=== PATIENT | male | born 1945 | race Caucasian/White ===

== ENCOUNTER 2020-11-01 09:19 | Emergency (ER) | payer OTHER, MEDICARE, SELFPAY ==
[2020-11-01 09:20] VITALS: BP 200/112; PULSE 68; RESP 16; TEMP 36.5; O2SAT 100; BMI 25.3
--- NOTE | 2020-11-01 09:39 | XR_ITS ---
WS: [id number] Portable AP upright chest, 11/01/2020 Clinical Data: chest pain Comparison: None. Findings: No nodules, masses or effusions are seen. The heart is normal. The pulmonary vascularity is not increased. No pneumonia or pneumothorax is seen. The aortic arch and descending aorta are tortuo us. There is a right shoulder arthroplasty. 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 Yelena tor leads are on the chest wall. XR/XR chest 1V portable [id number] Impression: Atherosclerosis.
--- NOTE | 2020-11-01 09:39 | ECG_ITS ---
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 Measurements Intervals [place] Rate: 68 P: 12 [place]: 161 QRS: -45 QRSD: 94 T: 57 QT: 405 QTc: 432 Interpretive Statements SINUS RHYTHM WITH OCCASIONAL SUPRAVENTRICULAR PREMATURE COMPLEXES INCOMPLETE RIGHT BUNDLE BRANCH BLOCK [90+ ms QRS DURATION, TERMINAL R IN V1/V2, 40+ ms S IN I/aVL/V4/V5/V6] LEFT ANTERIOR FASCICULAR BLOCK [QRS AXIS <= -45, QR IN I, RS IN II] MODERATE VOLTAGE CRITERIA FOR LVH, CONSIDER NORMAL VARIANT [MEETS CRITERIA IN ONE OF: R(aVL), S(V1), R(V5), R(V5/V6)+S(V1)] No previous ECG available for comparison Electronically Signed On 11-02-2020 5:19:11 CDT by Gayla Bowers M.D. [email or web address]/[id number]
--- NOTE | 2020-11-01 09:46 | W.ED.CHESTPA ---
HPI - Chest Pain General: Chief Complaint: Chest Pain Stated Complaint: CP Time Seen by Provider: 11/01/20 09:26 History of Present Illness: HPI narrative: 74-year-old male presents emergency room with complaint of chest pain left lateral. Began intermittently yesterday some shaking his with it. He had an episode yesterday was going upstairs he got a little bit diaphoretic and short of breath very mild nausea. He has not had any vomiting his appetite has been decreased. He previously had work-up for chest discomfort had a Holter monitor and a stress test but never had any kind of intervention has no known history of heart disease is not diabetic and he does not smoke does have a history of hyperlipidemia and hypertension he did take his blood pressure medications this morning. MD complaint: chest heaviness and chest discomfort Onset (ago): day(s) Timing of current episode: episodic Onset: during rest Pain location: substernal and left chest Severity: mild Quality: heaviness Relieving factors: nothing Exacerbating factors: nothing Associated symptoms: Reports diaphoresis, dyspnea and nausea; Deny abdominal pain, fever(s), leg edema, palpitations, sense of impending doom, syncope or vomiting Treatment prior to arrival: none Review of Systems Const: Reports: diaphoresis; Denies: fever(s) ENMT: Denies: throat pain, ear or mastoid pain, nasal discharge or nasal congestion Card: Denies: palpitations or syncope Resp: Reports: dyspnea GI: Reports: nausea; Denies: abdominal pain or vomiting : Denies: flank pain, dysuria, urinary frequency or urinary urgency Skin/Breast: Denies: rash or pruritus PFSH ED PFSH: Family History Father Cancer Mother CAD (coronary artery disease) Hypertension Social History Smoking and tobacco status: never smoked Physical Exam Const: COMMON NORMALS: no acute distress GENERAL APPEARANCE: cooperative and comfortable ORIENTATION/CONSCIOUSNESS: Yes awake, Yes oriented to person, Yes oriented to place and Yes oriented to time HENMT: COMMON NORMALS: normocephalic, atraumatic and hearing grossly normal bilaterally HEAD & SCALP: normocephalic and atraumatic Neck/C-Spine: COMMON NORMALS: no JVD Resp: COMMON NORMALS: normal respiratory effort, No retractions, No use of accessory muscles and clear to auscultation bilaterally AUSCULTATION: clear to auscultation bilaterally Cardio: COMMON NORMALS: no JVD, regular rate, regular rhythm and No murmurs present (Cardio) RATE: regular rate RHYTHM: regular rhythm GI: COMMON NORMALS: Soft to palpation and No hepatosplenomegaly present AUSCULTATION: Yes normoactive bowel sounds PALPATION: Yes Soft to palpation, No Tenderness to palpation present (GI), No Guarding due to palpation present (GI) and Yes No hepatosplenomegaly present Extremity: COMMON NORMALS: normal to inspection, capillary refill normal, no clubbing, cyanosis or edema, no calf tenderness and no pedal edema Neuro: SENSORIUM/ORIENTATION: Yes oriented to person, Yes oriented to place and Yes oriented to time Skin: COMMON NORMALS: no rashes or lesions noted GENERAL SKIN EXAM: no rashes or lesions noted Course Vital Signs: Vital signs: Vital Signs Temperature 97.7 F 11/01/20 09:20 Pulse Rate 64 11/01/20 12:36 Respiratory Rate 18 11/01/20 12:36 Blood Pressure 145/104 11/01/20 12:36 Pulse Oximetry 95 11/01/20 12:36 MDM - Chest Pain MDM Narrative: Medical decision making narrative: Patient prefer to go home troponins negative reviewed EKGs. Will discharge home metoprolol isosorbide mononitrate for his blood [id number] as primary care provider within the week. He also needs to return if he has any further problems. Lab Data: Labs: Lab Results 11/01/20 11/01/20 11/01/20 Range/Units 09:42 09:42 09:42 WBC 7.8 (4.0-10.0) 10^3/ uL RBC 5.14 (4.1-5.3) 10^6/u L Hgb 15.3 (11.7-16.6) g/dL Hct 45.2 (42.0-52.0) % MCV 87.9 (80-94) fL MCH 29.8 (28.0-34.0) pg MCHC 33.8 (30.0-36.0) g/dL RDW 11.9 L (12.1-15.1) % Plt Count 182 (130-400) 10^3/c mm MPV 9.7 (7.4-10.4) fL Neut % (Auto) 64.9 % Lymph % (Auto) 26.5 % [place] % (Auto) 6.3 % Eos % (Auto) 1.5 % Baso % (Auto) 0.5 % Neut # (Auto) 5.03 (1.8-7.7) 10^3/u L Lymph # (Auto) 2.1 (0.8-4.8) 10^3/u L [place] # (Auto) 0.5 (0.2-0.9) 10^3/u L Eos # (Auto) 0.1 (0.0-0.8) 10^3/u L Baso # (Auto) 0.0 (0.0-0.1) 10^3/u L Nucleated RBC % (a uto) 0 % Nucleated RBCs # 0.0 /100WBC Sodium 140 (136-145) mmol/L Potassium 3.8 (3.5-5.1) mmol/L Chloride 103 (98-107) mmol/L Carbon Dioxide 29 (22-29) mmol/L Anion Gap 11.8 (5-19) BUN 13 (8-23) mg/dL Creatinine 0.8 (0.7-1.2) mg/dL GFR Calculation Not Reportable Glucose 72 (65-115) mg/dL Calculated Osmolal ity 289 (285-295) mOsm/k g Calcium 8.8 (8.5-10.5) mg/dL Total Bilirubin 0.6 (0.15-1.2) mg/dL AST 13 (0-40) U/L ALT 11 (0-41) U/L Alkaline Phosphata se 67 (40-130) IU/L Troponin T Baselin e 16 H (0-15) ng/L Troponin T 120 Min robinson (0-15) ng/L Delta Troponin T (0-10) ABS# Total Protein 6.9 (6.6-8.7) g/dL Albumin 4.3 (3.5-5.2) g/dL Globulin 2.6 (1.3-4.6) g/dL 11/01/20 Range/Units 11:30 WBC (4.0-10.0) 10^3/ uL RBC (4.1-5.3) 10^6/u L Hgb (11.7-16.6) g/dL Hct (42.0-52.0) % MCV (80-94) fL MCH (28.0-34.0) pg MCHC (30.0-36.0) g/dL RDW (12.1-15.1) % Plt Count (130-400) 10^3/c mm MPV (7.4-10.4) fL Neut % (Auto) % Lymph % (Auto) % [place] % (Auto) % Eos % (Auto) % Baso % (Auto) % Neut # (Auto) (1.8-7.7) 10^3/u L Lymph # (Auto) (0.8-4.8) 10^3/u L [place] # (Auto) (0.2-0.9) 10^3/u L Eos # (Auto) (0.0-0.8) 10^3/u L Baso # (Auto) (0.0-0.1) 10^3/u L Nucleated RBC % (a uto) % Nucleated RBCs # /100WBC Sodium (136-145) mmol/L Potassium (3.5-5.1) mmol/L Chloride (98-107) mmol/L Carbon Dioxide (22-29) mmol/L Anion Gap (5-19) BUN (8-23) mg/dL Creatinine (0.7-1.2) mg/dL GFR Calculation Glucose (65-115) mg/dL Calculated Osmolal ity (285-295) mOsm/k g Calcium (8.5-10.5) mg/dL Total Bilirubin (0.15-1.2) mg/dL AST (0-40) U/L ALT (0-41) U/L Alkaline Phosphata se (40-130) IU/L Troponin T Baselin e (0-15) ng/L Troponin T 120 Min robinson 14.96 (0-15) ng/L Delta Troponin T -1.04 L (0-10) ABS# Total Protein (6.6-8.7) g/dL Albumin (3.5-5.2) g/dL Globulin (1.3-4.6) g/dL Discharge Plan Discharge Patient Disposition: Home Clinical Impression: Atypical chest pain, Benign essential HTN Condition: Stable Prescriptions: New isosorbide mononitrate 30 mg tablet extended release 24 hr 30 mg PO DAILY Qty: 30 RF: 0 metoprolol tartrate 25 mg tablet 12.5 mg PO BID Qty: 14 RF: 0 No Action amlodipine 5 mg tablet 5 mg PO DAILY RF: 0 aspirin [Adult Low Dose Aspirin] 81 mg tablet,delayed release (DR/EC) 81 mg PO ONCE RF: 0 latanoprost 0.005 % drops 1 drop ophthalmic (eye) DAILY RF: 0 quinapril 20 mg tablet 20 mg PO BID RF: 0 Rhopressa 0.02 % drops 1 drp ophthalmic (eye) BEDTIME RF: 0 Discharge Orders: Discharge ED (Routine); Ordered 11/01/20 Ordered By: Roby Zimmer Referrals: Ryan Long MD [Primary Care Provider] - Discharge Diet: Usual diet Discharge Activity: Limit activity as instructed Patient Instructions: Opioid Safety Activity Restrictions/Additional Instructions: Minimize exertional activity. Case management will call to set you up for a stress test. Monitor blood pressures at home record blood pressure 1-2 times a day and follow-up with Dr. Long within the next week with blood pressure log. If you have further problems return. Coding Level of Care Code ED Chief Controller [facility]wd Exam Comprehensive
[2020-11-01 09:48] LABS: Basophils % 0.5 %; Eosinophils # 0.1 10^3/uL (0.0-0.8); Eosinophils % 1.5 %; Hematocrit 45.2 % (42.0-52.0); Hemoglobin 15.3 g/dL (11.7-16.6); Lymphocytes # 2.1 10^3/uL (0.8-4.8); Lymphocytes % 26.5 %; Mean Corpuscular HGB Conc 33.8 g/dL (30.0-36.0); Mean Corpuscular Hemoglobin 29.8 pg (28.0-34.0); Mean Corpuscular Volume 87.9 fL (80-94); Mean Platelet Volume 9.7 fL (7.4-10.4); Monocytes # 0.5 10^3/uL (0.2-0.9); Monocytes % 6.3 %; Neutrophils # 5.03 10^3/uL (1.8-7.7); Neutrophils % 64.9 %; Nucleated Red Blood Cells % 0 %; Platelet Count 182 10^3/cmm (130-400); Red Blood Count 5.14 10^6/uL (4.1-5.3); Red Cell Distribution Width 11.9 % (12.1-15.1); White Blood Count 7.8 10^3/uL (4.0-10.0)
[2020-11-01 10:06] LABS: Alanine Aminotransferase 11 U/L (0-41); Albumin Level 4.3 g/dL (3.5-5.2); Alkaline Phosphatase 67 IU/L (40-130); Anion Gap 11.8 (5-19); Aspartate Amino Transferase 13 U/L (0-40); Blood Urea Nitrogen 13 mg/dL (8-23); Calcium 8.8 mg/dL (8.5-10.5); Carbon Dioxide 29 mmol/L (22-29); Chloride 103 mmol/L (98-107); Globulin 2.6 g/dL (1.3-4.6); Glucose 72 mg/dL (65-115); Osmolality Calculated 289 mOsm/kg (285-295); Potassium 3.8 mmol/L (3.5-5.1); Sodium 140 mmol/L (136-145); Total Bilirubin 0.6 mg/dL (0.15-1.2); Total Protein 6.9 g/dL (6.6-8.7); Troponin(5th) Baseline 16 ng/L (0-15)
[2020-11-01] MEDS: amlodipine 5 mg Tablet PO (10:14)
[2020-11-01] MEDS: metoprolol tartrate 25 mg Tablet PO (10:14)
[2020-11-01] MEDS: aspirin 81 mg Chew Tablet 324 MG PO (10:14)
[2020-11-01 10:34] VITALS: BP 153/109; PULSE 70; RESP 21; O2SAT 97
--- NOTE | 2020-11-01 11:39 | ECG_ITS ---
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 Measurements Intervals [place] Rate: 61 P: -7 [place]: 228 QRS: -45 QRSD: 89 T: 27 QT: 425 QTc: 429 Interpretive Statements SINUS RHYTHM WITH FIRST DEGREE AV BLOCK POSSIBLE RIGHT VENTRICULAR CONDUCTION DELAY [RSR (QR) IN V1/V2] INFERIOR MYOCARDIAL INFARCTION , PROBABLY OLD [40+ ms Q WAVE AND/OR ST/T ABNORMALITY IN II/aVF] Compared to ECG 11/01/2020 09:29:08 First degree AV block now present Myocardial infarct finding now present Incomplete right bundle-branch block no longer present Left anterior fascicular block no longer present Electronically Signed On 11-02-2020 5:24:42 CDT by Gayla Bowers M.D. [id number] f
[2020-11-01 11:52] VITALS: BP 150/101; PULSE 64; RESP 18; O2SAT 96
[2020-11-01 12:00] LABS: Troponin 5 2HR 14.96 ng/L (0-15)
[2020-11-01 12:03] LABS: Troponin 5 2HR Delta -1.04 ABS# (0-10)
[2020-11-01 12:36] VITALS: BP 145/104; PULSE 64; RESP 18; O2SAT 95
--- NOTE | 2020-11-04 14:59 | DCPLANNER ---
vice president & general manager [employer] [place] had message to schedule an outpatient stress test for patient. vice president & general manager [employer] faxed signed order for stress test to centralized scheduling. vice president & general manager [employer] will call for appointment information.
--- NOTE | 2020-11-12 07:33 | DCPLANNER ---
Patient has a stress test scheduled for Wednesday, November 27, 2020 at 9:15. Centralized scheduling will call patient with appointment information.
--- NOTE | 2020-12-26 16:51 | DCPLANNER ---
Patient had a follow up appointment scheduled for 11.27.20 for an outpatient stress test - patient did attend appointment.
== END 2020-11-01 12:38 | disposition home or self-care (01) ==
PROVIDERS: Emergency Provider Family Medicine; PCP Family Medicine
DX: R07.89 Other chest pain (principal); I10 Essential (primary) hypertension; Z79.82 Long term (current) use of aspirin
CPT/HCPCS: 71045; 80053; 84484; 85025; 93005; 99283

== ENCOUNTER 2020-11-27 06:33 | Outpatient (CLI) | payer OTHER, MEDICARE, SELFPAY ==
[2020-11-27 06:45] VITALS: BMI 25.9
--- NOTE | 2020-11-27 06:56 | ECG_ITS ---
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 Interpretive Statements NAME OF STUDY: LEXISCAN SESTAMIBI STRESS TEST INDICATION: Chest Pain, PROCEDURE: At the baseline, the EKG revealed normal sinus rhythm with a heart rate of 67 bpm. Possible old septal infarction; lead V2 V3 reversal. Minimal left axis deviation. The baseline blood pressure was 168/101 mm Hg with a heart rate of 67 beats/min. Lexiscan was infused over a period of 20 seconds. A total of 0.4 milligrams of Lexiscan was infused. The stress phase was continued for a total of 5 minutes. Heart rate at the end of the stress phase was 77 with a blood pressure 153/90. The EKG at the peak infusion revealed no significant changes. Sestamibi was injected 20 seconds after the Lexiscan infusion. Blood pressure at the end of the recovery phase was 149/91 with a heart rate of 80 per minute. CONCLUSION: 1. No significant EKG changes with the LexiScan infusion 2. No LexiScan induced chest pain or cardiac arrhythmia 3. Normal blood pressure and heart rate response 4. Sestamibi/sestamibi perfusion scan pending; see separate report. Electronically Signed On 12-12-2020 20:06:55 CDT by Demetra Crandall M.D. [id number]
--- NOTE | 2020-11-27 06:57 | NMCV_ITS ---
NM gene perf SPECT r/s* [id number] Porfirio Guzman Age: 74 Gender: M : 1945 Exam Date: 11/27/2020 07:51 Ordering Phys: Roby Zimmer DO Technologist: PALAK Peoples Exam Location: [facility] Indications: CHEST PAIN STRESS TEST Please [facility] for full findings IMAGE PROTOCOL Rest/Stress 1 Lexiscan Day Radiopharmaceutical Dose (mCi) Administration Site Administered by Rest: Tc-99m 10.9 IV PALAK Dumont Sestamibi Stress:Tc-99m 32.9 IV PALAK Peoples Sestamiagustin Rest: 27-Nov-2020 60 Discovery 630 Stress: 27-Nov-2020 30 Discovery 630 0.4mg Lexiscan. Supine position only as patient was unable to lay prone. SPECT RESULTS Technical Quality: Good Raw Data Analysis: Normal Image Corrections: No attenuation or motion correction applied Summed Stress Score: 1 Summed Rest Score: 0 Summed Difference Score: 1 PERFUSION FINDINGS Small area of decreased tracer uptake was noted in the mid inferoseptal region. No significant reversibility was noted in this region FUNCTIONAL RESULTS (calculated via Gated SPECT) Stress Image LV EF (%): 65 Stress EDV (mL):119 TID: 0.92 Stress ESV (mL):42 FUNCTIONAL FINDINGS: Segmental wall motion analysis revealing no gross wall motion abnormalities IMPRESSIONS 1. Myocardial perfusion imaging revealing a small area of persistent decreased tracer uptake in the mid inferoseptal region, suggestive of myocardial scarring versus attenuation artifact. 2. Normal LV ejection fraction of 65%. 3. LV wall motion analysis revealing no gross wall motion normalities. 4. Normal LV volume. No significant coronary ischemia, based on the above findings Dr Demetra Crandall MD FACC (Electronically Signed) Final Date: 27 Nov 2020 23:35 S
[2020-11-27] MEDS: regadenoson 0.4 Mg/5 ml Syringe IVP (08:28)
[2020-11-27 08:45] VITALS: BP 149/91; PULSE 78
== END 2020-11-27 06:34 | disposition home or self-care (01) ==
PROVIDERS: PCP Family Medicine; Visit Provider Family Medicine
DX: R07.9 Chest pain, unspecified (principal)
CPT/HCPCS: 78452; 93017; A9500; J2785

== ENCOUNTER 2020-12-11 06:43 | Outpatient (CLI) | payer OTHER, MEDICARE, SELFPAY ==
--- NOTE | 2020-12-11 06:54 | USCV_ITS ---
Porfirio Guzman Age: 74 Gender: M : 1945 Exam Date: 12/11/2020 07:19 Ordering Phys: Ryan Long MD Technologist: SUSANNE MUSE Exam Location: [facility] [place] Indication: ABNORMAL EKG BP: 133 / 74 HR: 62 Rhythm: Sinus Technical Quality: Adequate MEASUREMENTS (Male / Female) Normal Values 2D ECHO LV Diastolic Diameter PLAX 4.5 cm 4.2 - 5.9 / 3.9 - 5.3 cm LV Systolic Diameter PLAX 3.8 cm LV Chamber Size 3.8 cm IVS Diastolic Thickness 1.5 cm 0.6 - 1.0 / 0.6 - 0.9 cm IVS Systolic Thickness 1.3 cm LVPW Diastolic Thickness 1.5 cm 0.6 - 1.0 / 0.6 - 0.9 cm LVPW Systolic Thickness 1.5 cm RV Chamber Size 3.4 cm LVOT Diameter 2.0 cm LV Ejection Fraction 2D Teich 34.0 % LV Ejection Fraction MOD 2C 30.8 % LV Ejection Fraction 2C AL 27.0 % LA Diameter 2.6 cm LA Width 2.8 cm LA Height 3.5 cm RA Width 3.5 cm RA Height 2.9 cm Aorta at Sinotubular Diameter 3.4 cm M-MODE LV Diastolic Diameter MM 3.8 cm 4.2 - 5.9 / 3.9 - 5.3 cm LV Systolic Diameter MM 2.4 cm LV Ejection Fraction MM Teich 67.1 % IVS Diastolic Thickness MM 1.1 cm 0.6 - 1.0 / 0.6 - 0.9 cm IVS Systolic Thickness MM 1.2 cm LVPW Diastolic Thickness MM 1.3 cm 0.6 - 1.0 / 0.6 - 0.9 cm LVPW Systolic Thickness MM 1.8 cm Aortic Annulus Diameter 4.1 cm LA Ao Ratio MM 0.7 MV E Point Septal Separation 1.0 cm DOPPLER AV Peak Velocity 131.0 cm/s LVOT Peak Velocity 81.0 cm/s AV Area Cont Eq vti 2.0 cm squared AV Area Cont Eq pk 2.0 cm squared MV Area PHT 6.3 cm squared Mitral E to A Ratio 0.7 MV E' Velocity 41.5 cm/s Mitral E to MV E' Ratio 8.4 Mitral E to LV E' Lateral Ratio 7.3 Mitral E to LV E' Septal Ratio 9.8 TR Peak Velocity 167.8 cm/s TR Peak Gradient 11.3 mmHg TR Mean Velocity 139.4 cm/s TR Mean Gradient 8.0 mmHg TR Velocity Time Integral 47.6 cm TV Peak E Velocity 63.0 cm/s Right Atrial Pressure 3.0 mmHg Pulmonary Artery Systolic Pressu 14.3 mmHg PV Peak Velocity 59.0 cm/s RV Acceleration Time 0.1 s RV Ejection Time 0.3 s RV AcT/ET 0.3 FINDINGS Left Ventricle Normal left ventricular size. LV systolic function is mildly reduced with EF of 40-45%. Mild global hypokinesis. Grade 1 diastolic dysfunction Right Ventricle The right ventricle is normal in size and function. Right Atrium The right atrium is normal in size. Left Atrium The left atrium is normal in size. Mitral Valve Structurally normal mitral valve without significant stenosis or prolapse. There is no mitral regurgitation. Aortic Valve Thickened aortic valve without stenosis. There is no aortic regurgitation. Tricuspid Valve Structurally normal tricuspid valve without significant stenosis or regurgitation. Insufficient TR jet to calculate RVSP Pulmonic Valve Grossly normal Pericardium Normal pericardium without effusion. Aorta Dilated aortic root CONCLUSIONS LV systolic function is mildly reduced with EF of 40-45% Grade 1 diastolic dysfunction No significant valvular heart disease Dilated aortic root Compared to prior echocardiogram from 11/20/2020, LV systolic function is mildly reduced now Kike Pacheco MD (Electronically Signed) Final Date: 17 December 2020 22:30 S
== END 2020-12-11 06:44 | disposition home or self-care (01) ==
PROVIDERS: PCP Family Medicine; Visit Provider Family Medicine
DX: R94.31 Abnormal electrocardiogram [ECG] [EKG] (principal); I51.81 Takotsubo syndrome
CPT/HCPCS: 93306

== ENCOUNTER 2022-11-21 07:21 | Emergency (ER) | payer MEDICARE, OTHER, SELFPAY ==
[2022-11-21 07:25] VITALS: BP 158/106; PULSE 77; RESP 14; O2SAT 96; BMI 24.7
--- NOTE | 2022-11-21 07:40 | XRR_ITS ---
PROCEDURE INFORMATION: Exam: XR Left Shoulder Exam date and time: 11/21/2022 7:52 AM Age: 76 years old Clinical indication: Injury or trauma; Fall; Blunt trauma (contusions or hematomas); Shoulder; Left; Additional info: Shoulder pain TECHNIQUE: Imaging protocol: Radiologic exam of the left shoulder. Views: 2 or more views. COMPARISON: CR XR shoulder LT min 2V* [id number] 10/29/2016 12:00 PM FINDINGS: Bones/joints: The bones are diffusely osteopenic. No fracture. No dislocation. There is glenohumeral osteoarthritis, felt to have progressed in the interval. The acromioclavicular joint is within normal limits. The acromiohumeral interval is normal. Soft tissues: No acute soft tissue abnormality. XR/XR shoulder LT min 2V* [id number] IMPRESSION: 1. No fracture. 2. Glenohumeral osteoarthritis.
--- NOTE | 2022-11-21 07:50 | W.ED.EXTPRO ---
HPI - Extremity Problem General: Chief complaint: Extremity Injury, Upper Stated complaint: Sholder pain Time Seen by Provider: 11/21/22 07:41 Source: patient Mode of arrival: ambulatory History of Present Illness: 76-year-old male with a known left rotator cuff tear he slipped and fell yesterday while working in his yard he landed on his left side did not strike his head did not lose consciousness complaining of increased pain in the left shoulder is concerned he may have a fracture. He denies any other injuries. MD Complaint: joint pain Onset (ago): day(s) (1) Pain Consistency: constant Location: left (Shoulder) Quality: sharp Radiation: distal Relieving factors: immobilization Exacerbating factors: range of motion and palpation Associated symptoms: Deny arthralgias, chest pain, fever(s), myalgias, rash or short of breath Review of Systems Const: Denies: fever(s) Card: Denies: chest pain Resp: Denies: dyspnea, productive cough or non-productive cough GI: Denies: abdominal pain, nausea or vomiting : Denies: flank pain, dysuria, urinary frequency or urinary urgency Skin/Breast: Denies: rash PFSH ED PFSH: Family History Father Cancer Mother CAD (coronary artery disease) Hypertension Social History Smoking and tobacco status: never smoked Physical Exam Const: GENERAL APPEARANCE: cooperative and comfortable ORIENTATION/CONSCIOUSNESS: Yes awake, Yes oriented to person, Yes oriented to place and Yes oriented to time HENMT: COMMON NORMALS: normocephalic, atraumatic and hearing grossly normal bilaterally HEAD & SCALP: normocephalic and atraumatic Resp: COMMON NORMALS: normal respiratory effort, No retractions, No use of accessory muscles and clear to auscultation bilaterally AUSCULTATION: clear to auscultation bilaterally Cardio: COMMON NORMALS: regular rate, regular rhythm and No murmurs present (Cardio) RATE: regular rate RHYTHM: regular rhythm Extremity: OTHER: No obvious deformity. Pain with palpation over the lateral superior aspect of the glenohumeral joint. No pain with palpation of the proximal humerus or the clavicle no obvious deformity. Neuro: SENSORIUM/ORIENTATION: Yes oriented to person, Yes oriented to place and Yes oriented to time Skin: COMMON NORMALS: no rashes or lesions noted GENERAL SKIN EXAM: no rashes or lesions noted Course Vital Signs: Vital signs: Vital Signs Pulse Rate 77 11/21/22 07:25 Respiratory Rate 14 11/21/22 07:25 Blood Pressure 158/106 11/21/22 07:25 Pulse Oximetry 96 11/21/22 07:25 Oxygen Delivery Me thod Room Air 11/21/22 07:25 MDM - Extremity (Nontraumatic) Medical Decision Making Questionable osteophyte fracture but no significant fracture of the shoulder or clavicle. No proximal humerus fracture, no shoulder dislocation. He is very impressive amounts of osteoarthritic changes. Recommend arm sling pain medication as needed follow-up with orthopedics. He has previously been evaluated for rotator cuff and evidently is in the process of getting this treated. Medical Records I reviewed the patient's medical records. Discharge Plan Discharge Patient Disposition: Home Clinical Impression: Acute shoulder pain due to trauma Condition: Stable Prescriptions: New hydrocodone-acetaminophen 5-325 mg tablet 1 tab PO Q6H PRN (Reason: pain) Qty: 10 0RF No Action amlodipine 5 mg tablet 5 mg PO DAILY aspirin [Adult Low Dose Aspirin] 81 mg tablet,delayed release (DR/EC) 81 mg PO ONCE latanoprost 0.005 % drops 1 drop ophthalmic (eye) DAILY quinapril 20 mg tablet 20 mg PO BID Rhopressa 0.02 % drops 1 drp ophthalmic (eye) BEDTIME isosorbide mononitrate 30 mg tablet extended release 24 hr 30 mg PO DAILY Qty: 30 0RF metoprolol tartrate 25 mg tablet 12.5 mg PO BID Qty: 14 0RF Discharge Orders: Discharge ED (Routine); Ordered 11/21/22 Ordered By: Roby Zimmer Referrals: Ryan Long MD [Primary Care Provider] - Discharge Diet: Usual diet Discharge Activity: Increase activity as tolerated Patient Instructions: Opioid Safety, Pain Management Coding Level of Care Code ED [facility]ical [facility]
[2022-11-21] MEDS: HYDROcodone-acetaminophen 5-325 mg Tablet 1 TAB PO (07:51)
== END 2022-11-21 08:17 | disposition home or self-care (01) ==
PROVIDERS: Emergency Provider Family Medicine; PCP Family Medicine
DX: G89.11 Acute pain due to trauma (principal); M25.512 Pain in left shoulder
CPT/HCPCS: 73030; 99283

== ENCOUNTER 2023-01-08 11:14 | Emergency (ER) | payer MEDICARE, OTHER, SELFPAY ==
[2023-01-08] VITALS (8 sets, daily range): BP systolic 125–152; BP diastolic 87–101; PULSE 66–79; RESP 12–19; TEMP 36.7; O2SAT 96–100; BMI 25.0
--- NOTE | 2023-01-08 11:52 | XR_ITS ---
WS: [id number] Exam: XR chest 1V portable [id number] Date/Time of Exam: 01/08/2023 11:52 AM Reason For Exam: chest pain Comparison 11/01/2020. The lungs are clear and fully expanded. Heart size is normal. The mediastinum is normal in contour. N o pleural effusions. Bilateral shoulder replacements. Degenerative changes in the thoracic spine with multiple compression deformities and slight dextroscoliosis. XR/XR chest 1V portable [id number] IMPRESSION: 1. Pulmonary hyperinflation. No acute process noted.
[2023-01-08 12:28] LABS: Basophils # 0.1 10^3/uL (0.0-0.1); Basophils % 0.7 %; Eosinophils # 0.2 10^3/uL (0.0-0.8); Eosinophils % 2.7 %; Hematocrit 38.4 % (42.0-52.0); Hemoglobin 12.4 g/dL (11.7-16.6); Lymphocytes # 2.2 10^3/uL (0.8-4.8); Lymphocytes % 28.7 %; Mean Corpuscular HGB Conc 32.3 g/dL (30.0-36.0); Mean Corpuscular Hemoglobin 29.6 pg (28.0-34.0); Mean Corpuscular Volume 91.6 fl (80-94); Mean Platelet Volume 9.7 fL (7.4-10.4); Monocytes # 0.4 10^3/uL (0.2-0.9); Monocytes % 5.9 %; Neutrophils # 4.64 10^3/uL (1.8-7.7); Neutrophils % 61.7 %; Nucleated Red Blood Cells % 0 %; Platelet Count 185 10^3/cmm (130-400); Red Blood Count 4.19 10^6/uL (4.1-5.3); Red Cell Distribution Width 12.3 % (12.1-15.1); White Blood Count 7.5 10^3/uL (4.0-10.0)
[2023-01-08 12:46] LABS: Alanine Aminotransferase 10 U/L (0-41); Albumin Level 3.7 g/dL (3.5-5.2); Alkaline Phosphatase 82 U/L (40-130); Anion Gap 14.2 (5-19); Aspartate Amino Transferase 12 U/L (0-40); Blood Urea Nitrogen 14 mg/dL (8-23); Calcium 8.8 mg/dL (8.5-10.5); Carbon Dioxide 24 mmol/L (22-29); Chloride 102 mmol/L (98-107); Globulin 3.1 g/dL (1.3-4.6); Glucose 93 mg/dL (65-115); Osmolality Calculated 282 mOsm/kg (285-295); Potassium 4.2 mmol/L (3.5-5.1); Sodium 136 mmol/L (136-145); Total Bilirubin 0.4 mg/dL (0.15-1.2); Total Protein 6.8 g/dL (6.6-8.7); Troponin(5th) Baseline 15 ng/L (0-15)
--- NOTE | 2023-01-08 13:43 | ECG_ITS ---
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 Measurements Intervals [place] Rate: 70 P: 38 MN: 160 QRS: -51 QRSD: 94 T: 77 QT: 416 QTc: 450 Interpretive Statements SINUS RHYTHM WITH OCCASIONAL SUPRAVENTRICULAR PREMATURE COMPLEXES POSSIBLE RIGHT VENTRICULAR CONDUCTION DELAY [RSR (QR) IN V1/V2] LEFT ANTERIOR FASCICULAR BLOCK [QRS AXIS <= -45, QR IN I, RS IN II] NONSPECIFIC T-WAVE ABNORMALITY Compared to ECG 11/01/2020 11:34:45 Left anterior fascicular block now present T-wave abnormality now present First degree AV block no longer present Myocardial infarct finding no longer present Electronically Signed On 01-08-2023 15:46:49 CDT by Kike Pacheco M.D. [id number]
--- NOTE | 2023-01-08 13:52 | PC.NURSE ---
ASSUMED CARE OF PT AT THIS TIME.
--- NOTE | 2023-01-08 14:13 | ED_ITS ---
HPI - Chest Pain General: Chief Complaint: Chest Pain Stated Complaint: Chest Pains,SOB Time Seen by Provider: 01/08/23 14:04 Source: patient Mode of arrival: ambulatory History of Present Illness: 77-year-old male comes in the emergency room complaint of left-sided chest pain with no radiation a month ago he had a left shoulder surgery done and had been doing well. He had intermittent chest pain since 6:00 this morning when he woke with the stent was anything that exacerbates or relieves it no associated shortness of breath nausea or vomiting. He states he has previously had stress testing which was resulted as negative. MD complaint: chest pain Onset (ago): hour(s) Timing of current episode: episodic Onset: during rest Pain location: left chest Pain radiation: none Severity: moderate Quality: sharp Relieving factors: nothing Exacerbating factors: nothing Context: recent surgery (L shoulder) Associated symptoms: Deny abdominal pain, diaphoresis, dyspnea, fever(s), leg edema, nausea, palpitations, sense of impending doom, syncope or vomiting Review of Systems Const: Denies: fever(s), chills or diaphoresis ENMT: Denies: throat pain, ear or mastoid pain, nasal discharge or nasal congestion Card: Reports: chest pain; Denies: palpitations or syncope Resp: Denies: dyspnea GI: Denies: abdominal pain, nausea or vomiting : Denies: flank pain, dysuria, urinary frequency or urinary urgency Musc: Denies: neck pain or back pain Skin/Breast: Denies: rash or pruritus PFSH ED PFSH: Family History Father Cancer Mother CAD (coronary artery disease) Hypertension Social History Smoking and tobacco status: never smoked Physical Exam Const: GENERAL APPEARANCE: cooperative and comfortable ORIENTATION/CONSCIOUSNESS: Yes awake, Yes oriented to person, Yes oriented to place and Yes oriented to time HENMT: COMMON NORMALS: normocephalic, atraumatic and hearing grossly normal bilaterally HEAD & SCALP: normocephalic and atraumatic Chest: OTHER: Mild pain with palpation in the anterior chest wall on the left. Resp: COMMON NORMALS: normal respiratory effort, No retractions, No use of accessory muscles and clear to auscultation bilaterally AUSCULTATION: clear to auscultation bilaterally Cardio: COMMON NORMALS: regular rate, regular rhythm and No murmurs present (Cardio) RATE: regular rate RHYTHM: regular rhythm GI: COMMON NORMALS: Soft to palpation and No hepatosplenomegaly present AUSCULTATION: Yes normoactive bowel sounds PALPATION: Yes Soft to palpation, No Tenderness to palpation present (GI), No Guarding due to palpation present (GI) and Yes No hepatosplenomegaly present Extremity: COMMON NORMALS: normal to inspection, capillary refill normal, no clubbing, cyanosis or edema, no calf tenderness and no pedal edema Neuro: SENSORIUM/ORIENTATION: Yes oriented to person, Yes oriented to place and Yes oriented to time Skin: COMMON NORMALS: no rashes or lesions noted GENERAL SKIN EXAM: no rashes or lesions noted Course Vital Signs: Vital signs: Vital Signs Temperature 98.0 F 01/08/23 11:16 Pulse Rate 79 01/08/23 16:18 Respiratory Rate 18 01/08/23 16:18 Blood Pressure 139/92 01/08/23 16:18 Pulse Oximetry 100 01/08/23 16:18 Oxygen Delivery Me thod Room Air 01/08/23 11:16 MDM - Chest Pain Medical Decision Making Labs imaging and EKG reviewed. No acute EKG changes cardiac enzymes unremarkable. Chest x-ray is negative. Discharge patient home. Patient had a normal stress test 2 years ago. This seems more musculoskeletal in nature at this time. Have him return to his primary care doctor for reevaluation if he has worsening pain or recurrent symptoms return to the emergency cerumen. No sign of PE at this time patient is not tachycardic or hypoxic. Medical Records I reviewed the patient's medical records. Lab Data I reviewed the patient's lab results. 01/08/23 12:15 01/08/23 12:15 Radiology Impressions Chest X-Ray 01/08/23 11:52 IMPRESSION: 1. Pulmonary hyperinflation. No acute process noted. Laboratory Results WBC 7.5 10^3/uL (4.0-10.0) 01/08/23 12:15 RBC 4.19 10^6/uL (4.1-5.3) 01/08/23 12:15 Hgb 12.4 g/dL (11.7-16.6) 01/08/23 12:15 Hct 38.4 % (42.0-52.0) L 01/08/23 12:15 MCV 91.6 fl (80-94) 01/08/23 12:15 MCH 29.6 pg (28.0-34.0) 01/08/23 12:15 MCHC 32.3 g/dL (30.0-36.0) 01/08/23 12:15 RDW 12.3 % (12.1-15.1) 01/08/23 12:15 Plt Count 185 10^3/cmm (130-400) 01/08/23 12:15 MPV 9.7 fL (7.4-10.4) 01/08/23 12:15 Neut % (Auto) 61.7 % 01/08/23 12:15 Lymph % (Auto) 28.7 % 01/08/23 12:15 [place] % (Auto) 5.9 % 01/08/23 12:15 Eos % (Auto) 2.7 % 01/08/23 12:15 Baso % (Auto) 0.7 % 01/08/23 12:15 Neut # (Auto) 4.64 10^3/uL (1.8-7.7) 01/08/23 12:15 Lymph # (Auto) 2.2 10^3/uL (0.8-4.8) 01/08/23 12:15 [place] # (Auto) 0.4 10^3/uL (0.2-0.9) 01/08/23 12:15 Eos # (Auto) 0.2 10^3/uL (0.0-0.8) 01/08/23 12:15 Baso # (Auto) 0.1 10^3/uL (0.0-0.1) 01/08/23 12:15 Nucleated RBC % (auto) 0 % 01/08/23 12:15 Nucleated RBCs # 0.0 /100WBC 01/08/23 12:15 Sodium 136 mmol/L (136-145) 01/08/23 12:15 Potassium 4.2 mmol/L (3.5-5.1) 01/08/23 12:15 Chloride 102 mmol/L (98-107) 01/08/23 12:15 Carbon Dioxide 24 mmol/L (22-29) 01/08/23 12:15 Anion Gap 14.2 (5-19) 01/08/23 12:15 BUN 14 mg/dL (8-23) 01/08/23 12:15 Creatinine 0.8 mg/dL (0.7-1.2) 01/08/23 12:15 GFR Calculation Not Reportable 01/08/23 12:15 Glucose 93 mg/dL (65-115) 01/08/23 12:15 Calculated Osmolality 282 mOsm/kg (285-295) L 01/08/23 12:15 Calcium 8.8 mg/dL (8.5-10.5) 01/08/23 12:15 Total Bilirubin 0.4 mg/dL (0.15-1.2) 01/08/23 12:15 AST 12 U/L (0-40) 01/08/23 12:15 ALT 10 U/L (0-41) 01/08/23 12:15 Alkaline Phosphatase 82 U/L (40-130) 01/08/23 12:15 Troponin T Baseline 15 ng/L (0-15) 01/08/23 12:15 Troponin T 120 Minute 15.04 ng/L (0-15) H 01/08/23 14:39 Delta Troponin T 0.04 ABS# (0-10) 01/08/23 14:39 Total Protein 6.8 g/dL (6.6-8.7) 01/08/23 12:15 Albumin 3.7 g/dL (3.5-5.2) 01/08/23 12:15 Globulin 3.1 g/dL (1.3-4.6) 01/08/23 12:15 Discharge Plan Discharge Patient Disposition: Home Clinical Impression: Chest pain Condition: Stable Prescriptions: New aspirin 81 mg tablet,delayed release (DR/EC) 81 mg PO DAILY Qty: 30 0RF No Action amlodipine 5 mg tablet 5 mg PO DAILY latanoprost 0.005 % drops 1 drop ophthalmic (eye) DAILY isosorbide mononitrate 30 mg tablet extended release 24 hr 30 mg PO DAILY Qty: 30 0RF prednisolone acetate 1 % drops,suspension 1 drp ophthalmic (eye) DAILY metoprolol succinate 25 mg tablet extended release 24 hr 12.5 mg PO BID benazepril 10 mg tablet 10 mg PO BID Discharge Orders: Discharge ED (Routine); Ordered 01/08/23 Ordered By: Roby Zimmer Referrals: Ryan Long MD [Primary Care Provider] - Discharge Diet: Usual diet Discharge Activity: Increase activity as tolerated Patient Instructions: Opioid Safety, Pain Management Activity Restrictions/Additional Instructions: Continue your previously prescribed medications add baby aspirin daily and follow-up with your primary care doctor within the next week return to the ER if you have further problems. Coding Level of Care Code ED Manager Of Internal Audit for Augustine Hamilton
--- NOTE | 2023-01-08 14:25 | ECG_ITS ---
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 Measurements Intervals [place] Rate: 68 P: 29 [place]: 160 QRS: -50 QRSD: 90 T: 60 QT: 416 QTc: 445 Interpretive Statements SINUS RHYTHM POSSIBLE RIGHT VENTRICULAR CONDUCTION DELAY [RSR (QR) IN V1/V2] LEFT ANTERIOR FASCICULAR BLOCK [QRS AXIS <= -45, QR IN I, RS IN II] Compared to ECG 01/08/2023 13:43:20 T-wave abnormality no longer present Electronically Signed On 01-08-2023 15:52:17 CDT by Kike Pacheco M.D. [email or web address].[employer]/store/OM/[id number]
[2023-01-08 15:06] LABS: Troponin 5 2HR 15.04 ng/L (0-15)
[2023-01-08 15:07] LABS: Troponin 5 2HR Delta 0.04 ABS# (0-10)
== END 2023-01-08 16:20 | disposition home or self-care (01) ==
PROVIDERS: Physician Assistant; Emergency Provider Family Medicine; PCP Family Medicine
DX: R07.9 Chest pain, unspecified (principal)
CPT/HCPCS: 71045; 80053; 84484; 85025; 93005; 99285

== ENCOUNTER 2023-01-25 14:00 | Outpatient (RCR) | payer MEDICARE, OTHER, SELFPAY | END 2023-02-08 23:59 | disposition home or self-care (01) | LOC: SPT 14:00 | PROVIDERS: PCP Family Medicine; Visit Provider Orthopaedic Surgery | DX: Z47.1 Aftercare following joint replacement surgery (principal); Z96.612 Presence of left artificial shoulder joint | CPT/HCPCS: 97110; 97140; 97161; 97530 ==

== ENCOUNTER 2023-02-09 06:00 | Outpatient (RCR) | payer MEDICARE, OTHER, SELFPAY | END 2023-03-11 23:59 | disposition home or self-care (01) | LOC: SPT 06:00 | PROVIDERS: PCP Family Medicine; Visit Provider Orthopaedic Surgery | DX: Z47.1 Aftercare following joint replacement surgery (principal); Z96.612 Presence of left artificial shoulder joint | CPT/HCPCS: 97110; 97530 ==

== ENCOUNTER 2023-03-12 06:00 | Outpatient (RCR) | payer MEDICARE, OTHER, SELFPAY | END 2023-04-10 23:59 | disposition home or self-care (01) | LOC: SPT 06:00 | PROVIDERS: PCP Family Medicine; Visit Provider Orthopaedic Surgery | DX: Z47.1 Aftercare following joint replacement surgery (principal); Z96.612 Presence of left artificial shoulder joint | CPT/HCPCS: 97110; 97530 ==

== ENCOUNTER 2023-04-14 16:06 | Outpatient (RCR) | payer MEDICARE, OTHER, SELFPAY | END 2023-04-29 23:59 | disposition home or self-care (01) | LOC: SPT 16:06 | PROVIDERS: PCP Family Medicine; Visit Provider Orthopaedic Surgery | DX: Z47.1 Aftercare following joint replacement surgery (principal); Z96.612 Presence of left artificial shoulder joint | CPT/HCPCS: 97110; 97530 ==

== ENCOUNTER 2023-09-30 06:26 | Emergency (ER) | payer MEDICARE, OTHER, SELFPAY ==
[2023-09-30 06:29] VITALS: BP 166/107; PULSE 62; RESP 15; O2SAT 97; BMI 25.4
--- NOTE | 2023-09-30 06:32 | ECG_ITS ---
[facility] Test Date: 2023-09-30 Pat Name: Porfirio Guzman Department: Room: Gender: Male Companion: : 1945 Requested By: Roby Austin Order Number: [id number] Leticia MD: Demetra Crandall M.D. Measurements Intervals [place] Rate: 66 P: 0 CT: 0 QRS: -36 QRSD: 86 T: 30 QT: 411 QTc: 432 Interpretive Statements ATRIAL FIBRILLATION LEFT AXIS DEVIATION [QRS AXIS < -30] INFERIOR MYOCARDIAL INFARCTION , PROBABLY OLD [40+ ms Q WAVE AND/OR ST/T ABNORMALITY IN II/aVF] Compared to ECG 01/08/2023 14:25:38 Left-axis deviation now present Myocardial infarct finding now present Sinus rhythm no longer present Left anterior fascicular block no longer present Electronically Signed On 09-30-2023 22:03:56 CDT by Demetra Crandall M.D. [email or web address].[employer]/store/NU/[id number] f
--- NOTE | 2023-09-30 06:32 | XR_ITS ---
WS: [id number] Portable AP upright chest, 09/30/2023 Clinical Data: chest pain Comparison: Portable chest, 01/08/2023 Findings: No nodules, masses or effusions are seen. The heart is normal. The pulmonary vascularity is not increased. No pneumonia or pneumothorax is seen. The aortic arch and descending thoracic aorta s how tortuosity. The diaphragms are flattened. Bilateral shoulder arthroplasties are present. There ar e monitor leads on the chest wall. Impression: Atherosclerosis and hyperinflation.
[2023-09-30 06:33] VITALS: BP 166/107; PULSE 58; RESP 13; O2SAT 96
[2023-09-30 07:04] LABS: Basophils # 0.1 10^3/uL (0.0-0.1); Basophils % 0.7 %; Eosinophils # 0.2 10^3/uL (0.0-0.8); Eosinophils % 2.4 %; Hematocrit 45.4 % (37-53); Lymphocytes # 2.9 10^3/uL (0.8-4.8); Lymphocytes % 37.8 %; Mean Corpuscular HGB Conc 33.7 g/dL (30-55); Mean Corpuscular Hemoglobin 29.5 pg (27-33); Mean Corpuscular Volume 87.6 fl (82-101); Mean Platelet Volume 9.9 fL (7.4-10.4); Monocytes # 0.4 10^3/uL (0.2-0.9); Monocytes % 5.8 %; Neutrophils # 4.06 10^3/uL (1.8-7.7); Nucleated Red Blood Cells % 0 %; Platelet Count 172 10^3/cmm (157-399); Red Blood Count 5.18 10^6/uL (3.85-5.65); Red Cell Distribution Width 12.3 % (12.1-15.1); White Blood Count 7.64 10^3/uL (3.29-11.43)
--- NOTE | 2023-09-30 07:08 | ED_ITS ---
HPI - Chest Pain 2 General: Chief Complaint: Chest Pain Stated Complaint: chest pain,sob, left arm tingling Time Seen by Provider: 09/30/23 06:29 Source: patient Mode of arrival: ambulatory History of Present Illness: 77-year-old male presents emergency room complaining of chest pain woke him up from sleep with sharp chest pain radiating into his left arm that began around 3 AM. He has had previous evaluations for chest pain including a stress test in 2020 and echocardiogram done around that same time showed reduced ejection fraction and global hypokinesis with a EF of around 40 to 45%. MD complaint: chest pain Onset (ago): hour(s) Timing of current episode: episodic Onset: during rest Pain location: substernal and left chest Pain radiation: left arm Severity: moderate Quality: aching and heaviness Relieving factors: nothing Exacerbating factors: nothing Associated symptoms: Reports diaphoresis and dyspnea; Deny abdominal pain, fever(s), leg edema, nausea, palpitations, sense of impending doom, syncope or vomiting Treatment prior to arrival: none Review of Systems 2 Const: Reports: diaphoresis; Denies: fever(s) or chills Card: Denies: chest pain, palpitations or syncope Resp: Reports: dyspnea GI: Denies: abdominal pain, nausea or vomiting : Denies: dysuria, urinary frequency or urinary urgency Musc: Denies: neck pain or back pain Skin/Breast: Denies: rash PFSH ED 2 PFSH: Medical History (Updated 09/30/23 @ 10:47 by Roby Zimmer DO) Hypercholesterolemia Glaucoma HTN (hypertension) Surgical History (Updated 09/30/23 @ 07:09 by Roby Zimmer DO) S/P knee surgery S/P cataract surgery Family History Father Cancer Mother CAD (coronary artery disease) Hypertension Social History Smoking and tobacco/nicotine status: never used tobacco/nicotine Physical Exam 2 Const: COMMON NORMALS: no acute distress GENERAL APPEARANCE: cooperative and comfortable ORIENTATION/CONSCIOUSNESS: Yes awake, Yes oriented to person, Yes oriented to place and Yes oriented to time HENMT: COMMON NORMALS: normocephalic, atraumatic and hearing grossly normal bilaterally HEAD & SCALP: normocephalic and atraumatic Resp: COMMON NORMALS: normal respiratory effort, No retractions, No use of accessory muscles and clear to auscultation bilaterally AUSCULTATION: clear to auscultation bilaterally Cardio: COMMON NORMALS: regular rate, regular rhythm and No murmurs present (Cardio) RATE: regular rate RHYTHM: regular rhythm GI: COMMON NORMALS: Soft to palpation and No hepatosplenomegaly present A USCULTATION: Yes normoactive bowel sounds PALPATION: Yes Soft to palpation, No Tenderness to palpation present (GI), No Guarding due to palpation present (GI) and Yes No hepatosplenomegaly present Extremity: COMMON NORMALS: normal to inspection, capillary refill normal, no clubbing, cyanosis or edema, no calf tenderness and no pedal edema Neuro: SENSORIUM/ORIENTATION: Yes oriented to person, Yes oriented to place and Yes oriented to time Skin: COMMON NORMALS: no rashes or lesions noted GENERAL SKIN EXAM: no rashes or lesions noted Course 2 Vital Signs: Vital signs: Vital Signs Pulse Rate 74 09/30/23 11:11 Respiratory Rate 15 09/30/23 11:11 Blood Pressure 135/82 09/30/23 11:11 Pulse Oximetry 95 09/30/23 11:11 Oxygen Delivery Me thod Room Air 09/30/23 06:33 MDM - Chest Pain Medical Decision Making Cardiac enzymes negative EKG did not show any acute ST changes. Reviewed with the patient reviewed all the labs and imaging as found in the chart. Will increase the isosorbide mononitrate to 60 mg daily. Set him up for an outpatient Lexiscan sestamibi stress test return if has worsening symptoms continue aspirin daily. Medical Records I reviewed the patient's medical records. Lab Data I reviewed the patient's lab results. 09/30/23 06:39 09/30/23 06:39 Laboratory Results WBC 7.64 10^3/uL (3.29-11.43) 09/30/23 06:39 RBC 5.18 10^6/uL (3.85-5.65) 09/30/23 06:39 Hgb 15.30 g/dL (11.27-16.99) 09/30/23 06:39 Hct 45.4 % (37-53) 09/30/23 06:39 MCV 87.6 fl (82-101) 09/30/23 06:39 MCH 29.5 pg (27-33) 09/30/23 06:39 MCHC 33.7 g/dL (30-55) 09/30/23 06:39 RDW 12.3 % (12.1-15.1) 09/30/23 06:39 Plt Count 172 10^3/cmm (157-399) 09/30/23 06:39 MPV 9.9 fL (7.4-10.4) 09/30/23 06:39 Neut % (Auto) 53.0 % 09/30/23 06:39 Lymph % (Auto) 37.8 % 09/30/23 06:39 [place] % (Auto) 5.8 % 09/30/23 06:39 Eos % (Auto) 2.4 % 09/30/23 06:39 Baso % (Auto) 0.7 % 09/30/23 06:39 Neut # (Auto) 4.06 10^3/uL (1.8-7.7) 09/30/23 06:39 Lymph # (Auto) 2.9 10^3/uL (0.8-4.8) 09/30/23 06:39 [place] # (Auto) 0.4 10^3/uL (0.2-0.9) 09/30/23 06:39 Eos # (Auto) 0.2 10^3/uL (0.0-0.8) 09/30/23 06:39 Baso # (Auto) 0.1 10^3/uL (0.0-0.1) 09/30/23 06:39 Nucleated RBC % (auto) 0 % 09/30/23 06:39 Nucleated RBCs # 0.0 /100WBC 09/30/23 06:39 Sodium 141 mmol/L (136-145) 09/30/23 06:39 Potassium 3.7 mmol/L (3.5-5.1) 09/30/23 06:39 Chloride 106 mmol/L (98-107) 09/30/23 06:39 Carbon Dioxide 27 mmol/L (22-29) 09/30/23 06:39 Anion Gap 11.7 (5-19) 09/30/23 06:39 BUN 14 mg/dL (8-23) 09/30/23 06:39 Creatinine 0.7 mg/dL (0.7-1.2) 09/30/23 06:39 GFR Calculation Not Reportable 09/30/23 06:39 Glucose 84 mg/dL (65-115) 09/30/23 06:39 Calculated Osmolality 292 mOsm/kg (285-295) 09/30/23 06:39 Calcium 8.5 mg/dL (8.5-10.5) 09/30/23 06:39 Total Bilirubin 0.9 mg/dL (0.15-1.2) 09/30/23 06:39 AST 14 U/L (0-40) 09/30/23 06:39 ALT 10 U/L (0-41) 09/30/23 06:39 Alkaline Phosphatase 75 U/L (40-130) 09/30/23 06:39 Troponin T Baseline 14 ng/L (0-15) 09/30/23 06:39 Troponin T 120 Minute 11.78 ng/L (0-15) 09/30/23 08:41 Delta Troponin T -2.22 ABS# (0-10) L 09/30/23 08:41 Total Protein 6.8 g/dL (6.6-8.7) 09/30/23 06:39 Albumin 4.2 g/dL (3.5-5.2) 09/30/23 06:39 Globulin 2.6 g/dL (1.3-4.6) 09/30/23 06:39 All radiology interpretation(s) finalized by discharge Discharge Plan Discharge Patient Disposition: Home Clinical Impression: Atypical chest pain Condition: Stable Prescriptions: New isosorbide mononitrate 60 mg tablet extended release 24 hr 60 mg PO DAILY Qty: 30 0RF Nitrostat 0.4 mg tablet, sublingual 0.4 mg sublingual Q5M PRN (Reason: chest pain) Qty: 20 0RF Rx Instructions: do not exceed 3 doses per episode Discontinued isosorbide mononitrate 30 mg tablet extended release 24 hr 30 mg PO DAILY Qty: 30 0RF No Action amlodipine 5 mg tablet 5 mg PO DAILY latanoprost 0.005 % drops 1 drop ophthalmic (eye) DAILY prednisolone acetate 1 % drops,suspension 1 drp ophthalmic (eye) DAILY metoprolol succinate 25 mg tablet extended release 24 hr 12.5 mg PO BID benazepril 10 mg tablet 10 mg PO BID aspirin 81 mg tablet,delayed release (DR/EC) 81 mg PO DAILY Qty: 30 0RF Discharge Orders: Discharge ED (Routine); Ordered 09/30/23 Ordered By: Roby Zimmer Referrals: Ryan Long MD [Primary Care Provider] - Discharge Diet: Usual diet Discharge Activity: Limit activity as instructed Patient Instructions: Opioid Safety, Pain Management Activity Restrictions/Additional Instructions: Thank you for choosing [facility] for your healthcare needs today. Please realize this is an emergency room and that we are providing you with a medical screening exam and this may not be complete and all inclusive of all the testing and or work up that you may need to determine your ailment or severity of your illness. It is very important that you follow up as instructed or that you return to the Emergency Department should you have concerns or if your condition changes or worsens in any way. You were seen today for chest discomfort. Your cardiac enzymes and EKGs did not show any acute abnormality. Your blood pressure was mildly elevated recommend you increase your isosorbide mononitrate to 60 mg daily a new prescription was sent in for you. Case management will set up an outpatient Lexiscan sestamibi stress test. Coding Level of Care Code ED Fabric Worker Foreman for Augustine Hamilton
[2023-09-30 07:14] LABS: Alanine Aminotransferase 10 U/L (0-41); Albumin Level 4.2 g/dL (3.5-5.2); Alkaline Phosphatase 75 U/L (40-130); Aspartate Amino Transferase 14 U/L (0-40); Blood Urea Nitrogen 14 mg/dL (8-23); Calcium 8.5 mg/dL (8.5-10.5); Carbon Dioxide 27 mmol/L (22-29); Chloride 106 mmol/L (98-107); Creatinine Clr Calc Pharmacy 95.9363; Globulin 2.6 g/dL (1.3-4.6); Glucose 84 mg/dL (65-115); Osmolality Calculated 292 mOsm/kg (285-295); Sodium 141 mmol/L (136-145); Total Bilirubin 0.9 mg/dL (0.15-1.2); Total Protein 6.8 g/dL (6.6-8.7); Troponin(5th) Baseline 14 ng/L (0-15)
[2023-09-30 07:24] LABS: Anion Gap 11.7 (5-19); Potassium 3.7 mmol/L (3.5-5.1)
--- NOTE | 2023-09-30 08:32 | ECG_ITS ---
[facility] Test Date: 2023-09-30 Pat Name: Porfirio Guzman Department: Room: Gender: Male Nursing Director: : 1945 Requested By: Roby Austin Order Number: [id number] Leticia MD: Demetra Crandall M.D. Measurements Intervals [place] Rate: 61 P: 0 [place]: 0 QRS: -42 QRSD: 90 T: 56 QT: 447 QTc: 452 Interpretive Statements ATRIAL FIBRILLATION LEFT AXIS DEVIATION [QRS AXIS < -30] MINIMAL ST DEPRESSION [0.025+ mV ST DEPRESSION] Compared to ECG 09/30/2023 06:32:34 ST (T wave) deviation now present Myocardial infarct finding no longer present Electronically Signed On 09-30-2023 22:15:58 CDT by Demetra Crandall M.D. [email or web address]/store/OM/[id number]
[2023-09-30 09:13] LABS: Troponin 5 2HR 11.78 ng/L (0-15)
[2023-09-30 09:16] LABS: Troponin 5 2HR Delta -2.22 ABS# (0-10)
[2023-09-30 09:43] VITALS: BP 137/103; PULSE 74; RESP 15; O2SAT 95
[2023-09-30 11:11] VITALS: BP 135/82; PULSE 74; RESP 15; O2SAT 95
--- NOTE | 2023-10-04 12:13 | DCPLANNER ---
Sent to centralized scheduling to schedule
== END 2023-09-30 11:13 | disposition home or self-care (01) ==
PROVIDERS: Emergency Provider Family Medicine; PCP Family Medicine
DX: R07.89 Other chest pain (principal); Z79.82 Long term (current) use of aspirin; I10 Essential (primary) hypertension
CPT/HCPCS: 36415; 71045; 80053; 84484; 85025; 93005; 99285

== ENCOUNTER 2023-10-08 07:14 | Outpatient (CLI) | payer MEDICARE, OTHER, SELFPAY ==
[2023-10-08 07:38] VITALS: BMI 24.8
--- NOTE | 2023-10-08 07:38 | ECG_ITS ---
[facility] Test Date: 2023-10-08 Pat Name: Porfirio Guzman Department: Room: Gender: Male Learning Specialist: Mendy Peters : 1945 Requested By: Roby Austin Order Number: [id number] Leticia MD: Kike Pacheco M.D. Interpretive Statements NAME OF STUDY: LEXISCAN SESTAMIBI STRESS TEST INDICATION: Chest Pressure; Chest Pain, Procedure: At the baseline, the blood pressure was 153/88 mmHg with a heart rate of 81 bpm. The electrocardiogram showed atrial fibrillation, left axis deviation with normal ST and T's. The Lexiscan was infused over a period of 20 seconds. A total of 0.4 mg of Lexiscan was infused. The stress phase was continued for a total of 5 minutes. Heart rate was at the end of stress phase was 78 bpm and a blood pressure of 143/83 mmHg. The EKG at the peak infusion revealed atrial fibrillation with no significant ST-T wave changes. Sestamibi was injected 20 seconds after the Lexiscan infusion. Blood pressure at the end of recovery phase was 151/99 mmHg with a heart rate of 81 bpm. Conclusion: 1. Normal EKG response to Lexiscan infusion 2. No Lexiscan induced chest pain or cardiac arrhythmia. 3. Normal blood pressure and heart rate response. 4. Sestamibi/sestamibi perfusion scan pending; see separate report. Electronically Signed On 10-28-2023 6:41:26 CDT by Kike Pacheco M.D. [email or web address] [facility].[employer]store/OM/[id number]
--- NOTE | 2023-10-08 07:38 | NMCV_ITS ---
NM gene perf SPECT r/s* [id number] Porfirio Guzman Age: 77 Gender: M : 1945 Exam Date: 10/08/2023 07:38 Ordering Phys: Roby Zimmer DO Technologist: PALAK Peoples Exam [facility]: [facility] Indications: CHEST PAIN STRESS TEST [facility] IMAGE PROTOCOL Rest/Stress 1 Lexiscan Day Radiopharmaceutical Dose (mCi) Administration Site Administered by Rest: Tc-99m 10.8 IV PALAK Dumont Sestamibi Stress:Tc-99m 32.9 IV PALAK Dumont Sestamibi Rest: 08-Oct-2023 60 Discovery 630 Stress: 08-Oct-2023 30 Discovery 630 0.4mg Lexiscan. Images obtained in supine and prone position. SPECT RESULTS Technical Quality: Excellent Raw Data Analysis: Normal Image Corrections: No attenuation or motion correction applied Summed Stress Score: 1 Summed Rest Score: 1 Summed Difference Score: 0 PERFUSION FINDINGS SPECT images demonstrate homogeneous tracer distribution throughout the myocardium. FUNCTIONAL RESULTS (calculated via Gated SPECT) Stress Image LV EF (%): 72 Stress EDV (mL):124 TID: 0.88 Stress ESV (mL):35 FUNCTIONAL FINDINGS: There is normal left ventricular systolic function. IMPRESSIONS 1. Normal myocardial perfusion imaging with no evidence of ischemia 2. LV systolic function is normal Kike Pacheco MD (Electronically Signed) Final Date: 09 October 2023 09:19 S
[2023-10-08] MEDS: regadenoson 0.4 Mg/5 ml Syringe 0.400000000000000022 MG IVP (08:57)
[2023-10-08 09:00] VITALS: BP 151/99; PULSE 71
== END 2023-10-08 07:15 | disposition home or self-care (01) ==
LOC: CDL 07:15
PROVIDERS: PCP Family Medicine; Visit Provider Family Medicine
DX: R07.89 Other chest pain (principal)
CPT/HCPCS: 36415; 78452; 93017; 96374; A9500; J2785

== ENCOUNTER 2023-10-09 01:20 | Emergency (ER) | payer MEDICARE, OTHER, SELFPAY ==
[2023-10-09] VITALS (9 sets, daily range): BP systolic 131–168; BP diastolic 88–115; PULSE 58–84; RESP 14–18; TEMP 36.6; O2SAT 94–99; BMI 25.4
--- NOTE | 2023-10-09 01:23 | XRR_ITS ---
PROCEDURE INFORMATION: Exam: XR Chest Exam date and time: 10/09/2023 1:26 AM Age: 77 years old Clinical indication: Chest pressure; Prior surgery; Surgery date: 6+ months; Surgery type: Bilat total shoulder; Patient HX: C/O left sided chest pain TECHNIQUE: Imaging protocol: Radiologic exam of the chest. Views: 1 view. COMPARISON: CR XR chest 1V portable [id number] 09/30/2023 7:17 AM FINDINGS: Lungs: Unremarkable. No consolidation. Pleural spaces: Unremarkable. No pleural effusion. No pneumothorax. Heart/Mediastinum: Unremarkable. No cardiomegaly. Bones/joints: Left reverse total shoulder arthroplasty. Partial right shoulder arthroplasty. XR/XR chest 1V portable [id number] IMPRESSION: No acute cardiopulmonary findings.
--- NOTE | 2023-10-09 01:24 | ECG_ITS ---
[facility] Test Date: 2023-10-09 Pat Name: Porfirio Guzman Department: Room: Gender: Male Platform Architect: : 1945 Requested By: Amari Sykes Order Number: [id number] Leticia MD: Demetra Crandall M.D. Measurements Intervals [place] Rate: 69 P: 0 [place]: 0 QRS: -43 QRSD: 77 T: 41 QT: 392 QTc: 423 Interpretive Statements ATRIAL FIBRILLATION POSSIBLE RIGHT VENTRICULAR CONDUCTION DELAY [RSR (QR) IN V1/V2] INFERIOR MYOCARDIAL INFARCTION , PROBABLY OLD [40+ ms Q WAVE AND/OR ST/T ABNORMALITY IN II/aVF] Compared to ECG 09/30/2023 08:24:53 Myocardial infarct finding now present Left-axis deviation no longer present ST (T wave) deviation no longer present Electronically Signed On 10-09-2023 11:00:09 CDT by Demetra Crandall M.D. [email or web address]/store/[id number]
[2023-10-09] MEDS: nitroglycerin 1 gm/inch oint Pkt 1 INCH TOPICAL (01:34)
[2023-10-09 01:35] LABS: Basophils # 0.1 10^3/uL (0.0-0.1); Basophils % 0.6 %; Eosinophils # 0.2 10^3/uL (0.0-0.8); Hematocrit 42.8 % (37-53); Lymphocytes # 3.3 10^3/uL (0.8-4.8); Lymphocytes % 39.1 %; Mean Corpuscular HGB Conc 34.1 g/dL (30-55); Mean Corpuscular Hemoglobin 29.6 pg (27-33); Mean Corpuscular Volume 86.8 fl (82-101); Mean Platelet Volume 9.4 fL (7.4-10.4); Monocytes # 0.5 10^3/uL (0.2-0.9); Monocytes % 6.4 %; Neutrophils # 4.35 10^3/uL (1.8-7.7); Neutrophils % 51.7 %; Nucleated Red Blood Cells % 0 %; Platelet Count 168 10^3/cmm (157-399); Red Blood Count 4.93 10^6/uL (3.85-5.65); Red Cell Distribution Width 12.7 % (12.1-15.1); White Blood Count 8.43 10^3/uL (3.29-11.43)
[2023-10-09] MEDS: nitroglycerin 0.4 mg sublingual Tablet 0.400000000000000022 MG SUBLINGUAL (01:35)
[2023-10-09 01:48] LABS: INR 0.96 (0.8-1.2)
[2023-10-09 01:58] LABS: Troponin(5th) Baseline 16 ng/L (0-15)
[2023-10-09 02:02] LABS: Alanine Aminotransferase 9 U/L (0-41); Albumin Level 4.1 g/dL (3.5-5.2); Alkaline Phosphatase 69 U/L (40-130); Anion Gap 12.7 (5-19); Aspartate Amino Transferase 13 U/L (0-40); Blood Urea Nitrogen 17 mg/dL (8-23); Calcium 8.7 mg/dL (8.5-10.5); Carbon Dioxide 25 mmol/L (22-29); Chloride 106 mmol/L (98-107); Creatinine Clr Calc Pharmacy 95.9363; Globulin 2.6 g/dL (1.3-4.6); Glucose 95 mg/dL (65-115); NT Pro B Type Natriuretic Pept 778 pg/mL (0-450); Osmolality Calculated 291 mOsm/kg (285-295); Potassium 3.7 mmol/L (3.5-5.1); Sodium 140 mmol/L (136-145); Total Bilirubin 0.7 mg/dL (0.15-1.2); Total Protein 6.7 g/dL (6.6-8.7)
[2023-10-09 03:52] LABS: Troponin 5 2HR 13.48 ng/L (0-15)
[2023-10-09 03:53] LABS: Troponin 5 2HR Delta -2.52 ABS# (0-10)
--- NOTE | 2023-10-09 04:13 | ED_ITS ---
HPI - Chest Pain 2 General: Chief Complaint: Chest Pain Stated Complaint: cp Time Seen by Provider: 10/09/23 01:23 History of Present Illness: 77-year-old male presents emergency department with complaints of left-sided chest pain that woke him up from sleeping. He states he had a sharp left-sided chest pain rating to his left arm. Patient also had a stress test on 10/08/2023 and does not know the results of that test. His previous echocardiogram in 2020 showed global hypokinesis with an EF of 40 to 45%. He states he did feel like he was briefly short of breath and was diaphoretic at the time that his chest pain occurred this morning. He denies nausea, vomiting, dizziness lightheaded feeling. He states he did get up and take 2 aspirins and his chest pain went away. Patient also states he feels like he has restless legs and has for many years and has never received any medications to help his restless leg. Associated symptoms: Deny dyspnea or palpitations Review of Systems 2 General: Reports: 10 or more systems reviewed and unremarkable except in HPI and below Card: Reports: chest pain; Denies: palpitations or edema Resp: Denies: dyspnea Musc: Reports: other (Restless legs) PFS ED 2 PFSH: Medical History (Updated 10/09/23 @ 04:51 by Amari Sykes MD) Hypercholesterolemia Glaucoma HTN (hypertension) Surgical History (Updated 09/30/23 @ 07:09 by Roby Zimmer DO) S/P knee surgery S/P cataract surgery Family History Father Cancer Mother CAD (coronary artery disease) Hypertension Social History Smoking and tobacco/nicotine status: never used tobacco/nicotine Physical Exam 2 Narrative: EXAM NARRATIVE: Constitutional: the patient appears well nourished and with normal development. Vital signs reviewed as documented. HENMT: Normocephalic, atraumatic. External ears normal appearance without drainage. Nose without drainage, normal appearance. Mucus membranes moist. Neck is supple, No jugular venous distension, trachea is midline, no appreciable carotid bruits. No lymphadenopathy. No meningeal signs. Flexion, extension and lateral rotation is without pain. Eyes: Pupils are equal, round, reactive to light and accommodation. No scleral icterus. Extra-ocular movement are intact. Thorax is symmetrical and with equal rise and fall with respirations. Resp: Lungs are clear to auscultation. No wheezes, rales, crackles or ronchi at present. Cardio: Irregularly irregular rhythm consistent with atrial fibrillation rate controlled. Positive S1, S2. No appreciable murmurs, rubs or gallops. GI: Abdominal exam reveals normal bowel sounds to all quadrants. No organomegaly. No obvious palpable masses noted. No hepatomegally appreciated. Soft, non-tender to palpation. Extremity: Extremities are non-edematous and both femoral and pedal pulses are 2+ and equal bilaterally. Moves all extremities well, sensation in all extremities. Neuro: Alert and oriented x4, person, place, time and situation. Cranial nerves II through XII are grossly intact, there is no focal neurological deficits that I can appreciate at present. Sensation intact to all extremities. 2-point discrimination intact. Light touch intact to all extremities. Motor strength in the upper and lower extremities are equal and bilateral 5/5. Psych: Cooperative, calm, normal thought process, appropriate judgment. Skin: No lesions, rashes. No gross abnormalities noted. Back: Symmetrical, no obvious deformity, No CVA tenderness Course 2 Vital Signs: Vital signs: Vital Signs Temperature 97.9 F 10/09/23 01:22 Pulse Rate 58 L 10/09/23 04:00 Respiratory Rate 14 10/09/23 03:29 Blood Pressure 134/100 10/09/23 04:00 Pulse Oximetry 96 10/09/23 04:00 Oxygen Delivery Me thod Room Air 10/09/23 03:29 MDM - Chest Pain Medical Decision Making Physical exam completed and documented, I will obtain serial cardiac enzymes, serial twelve-lead EKGs, chest x-ray, CBC, CMP, urinalysis, B-type natriuretic peptide, PT/PTT/INR, and a chest x-ray. I will provide cardiac dose aspirin and nitroglycerin administration if indicated. I have reviewed previous and pertinent medical records for assist in obtaining beneficial medical information to improved the care and treatment of the patient. Patient CBC and CMP were essentially unremarkable. Cardiac enzymes were negative his BNP was 778, it does appear that he had a stress test done on 10/08/2023 and the results are still pending. The chest x-ray was negative for acute findings. The patient's twelve-lead EKG continued to show atrial fibrillation with rate controlled in the 60s. Differential diagnosis includes pneumonia, atypical chest pain, NSTEMI, anxiety, pleuritic chest pain, costochondritis, electrolyte abnormality, I did have an extensive discussion with the patient and his family members about the importance of follow-up they have requested to receive Dr. Romero's office information so they could get established with a paving foreman. Patient did request something for his restless leg syndrome and I have prescribed him Requip and requested that he follow-up with his primary care provider for additional evaluation treatment and care. Medical Records I reviewed the patient's medical records. Lab Data I reviewed the patient's lab results. 10/09/23 01:27 10/09/23 01:27 Radiology Impressions Chest X-Ray 10/09/23 01:23 IMPRESSION: No acute cardiopulmonary findings. Laboratory Results WBC 8.43 10^3/uL (3.29-11.43) 10/09/23 01: RBC 4.93 10^6/uL (3.85-5.65) 10/09/23 01:27 Hgb 14.60 g/dL (11.27-16.99) 10/09/23 01: Hct 42.8 % (37-53) 10/09/23 01: MCV 86.8 fl (82-101) 10/09/23 01: MCH 29.6 pg (27-33) 10/09/23 01: MCHC 34.1 g/dL (30-55) 10/09/23 01: RDW 12.7 % (12.1-15.1) 10/09/23 01:27 Plt Count 168 10^3/cmm (157-399) 10/09/23 01: MPV 9.4 fL (7.4-10.4) 10/09/23 01: Neut % (Auto) 51.7 % 10/09/23 01: Lymph % (Auto) 39.1 % 10/09/23 01: Preble % (Auto) 6.4 % 10/09/23 01: Eos % (Auto) 2.0 % 10/09/23 01: Baso % (Auto) 0.6 % 10/09/23 01: Neut # (Auto) 4.35 10^3/uL (1.8-7.7) 10/09/23 01: Lymph # (Auto) 3.3 10^3/uL (0.8-4.8) 10/09/23 01: Preble # (Auto) 0.5 10^3/uL (0.2-0.9) 10/09/23 01: Eos # (Auto) 0.2 10^3/uL (0.0-0.8) 10/09/23 01: Baso # (Auto) 0.1 10^3/uL (0.0-0.1) 10/09/23 01: Nucleated RBC % (auto) 0 % 10/09/23 01: Nucleated RBCs # 0.0 /100WBC 10/09/23 01: PT 13.00 SECONDS (12.1-14.9) 10/09/23 01: INR 0.96 (0.8-1.2) 10/09/23 01:27 Sodium 140 mmol/L (136-145) 10/09/23 01:27 Potassium 3.7 mmol/L (3.5-5.1) 10/09/23 01: Chloride 106 mmol/L (98-107) 10/09/23 01:27 Carbon Dioxide 25 mmol/L (22-29) 10/09/23 01:27 Anion Gap 12.7 (5-19) 10/09/23 01:27 BUN 17 mg/dL (8-23) 10/09/23 01:27 Creatinine 0.8 mg/dL (0.7-1.2) 10/09/23 01:27 GFR Calculation Not Reportable 10/09/23 01:27 Glucose 95 mg/dL (65-115) 10/09/23 01:27 Calculated Osmolality 291 mOsm/kg (285-295) 10/09/23 01:27 Calcium 8.7 mg/dL (8.5-10.5) 10/09/23 01:27 Total Bilirubin 0.7 mg/dL (0.15-1.2) 10/09/23 01:27 AST 13 U/L (0-40) 10/09/23 01:27 ALT 9 U/L (0-41) 10/09/23 01:27 Alkaline Phosphatase 69 U/L (40-130) 10/09/23 01:27 Troponin T Baseline 16 ng/L (0-15) H 10/09/23 01:27 Troponin T 120 Minute 13.48 ng/L (0-15) 10/09/23 03:24 Delta Troponin T -2.52 ABS# (0-10) L 10/09/23 03:24 NT-Pro-B Natriuret Pep 778 pg/mL (0-450) H 10/09/23 01:27 Total Protein 6.7 g/dL (6.6-8.7) 10/09/23 01:27 Albumin 4.1 g/dL (3.5-5.2) 10/09/23 01:27 Globulin 2.6 g/dL (1.3-4.6) 10/09/23 01:27 All radiology interpretation(s) finalized by discharge EKG Data EKG 1: Interpretation: Twelve-lead EKG obtained at 0 124 demonstrates atrial fibrillation with a ventricular rate of 69 bpm, QRS duration 77 QT 392 QTc [address] elevation or depression to demonstrate acute ischemia or infarction at present. EKG 2: Interpretation: Twelve-lead EKG obtained at 0 327 and reviewed at 0 327 demonstrates atrial fibrillation with a ventricular rate of 67 bpm, QRS duration 88, QT 426, QTc [address] elevation or depression to demonstrate acute ischemia or infarction at present Discharge Plan Discharge Patient Disposition: Home Clinical Impression: Atypical chest pain, Restless leg syndrome Condition: Stable Prescriptions: New ropinirole 0.25 mg tablet 0.25 mg PO .qhs Qty: 20 0RF No Action amlodipine 5 mg tablet 5 mg PO DAILY latanoprost 0.005 % drops 1 drop ophthalmic (eye) DAILY isosorbide mononitrate 60 mg tablet extended release 24 hr 60 mg PO DAILY Qty: 30 0RF Nitrostat 0.4 mg tablet, sublingual 0.4 mg sublingual Q5M PRN (Reason: chest pain) Qty: 20 0RF Rx Instructions: do not exceed 3 doses per episode prednisolone acetate 1 % drops,suspension 1 drp ophthalmic (eye) DAILY metoprolol succinate 25 mg tablet extended release 24 hr 12.5 mg PO BID benazepril 10 mg tablet 10 mg PO BID aspirin 81 mg tablet,delayed release (DR/EC) 81 mg PO DAILY Qty: 30 0RF Discharge Orders: Discharge ED (Routine); Ordered 10/09/23 Ordered By: Amari Sykes Referrals: Ryan Long MD [Primary Care Provider] - Discharge Diet: Usual diet Discharge Activity: Resume usual activity Patient Instructions: Opioid Safety, Pain Management Activity Restrictions/Additional Instructions: Activity Restrictions/Additional Instructions: Thank you for choosing [facility] for your healthcare needs today. Please realize that you were seen in the Emergency Department and that we are providing you with an emergency medical screening exam and this may not be a complete and all inclusive of all the testing and or medical work-up that you may need to determine your ailment or severity of your illness. It is very important that you follow-up as instructed with your Primary care provider or Specialist for additional evaluation and to discuss your medical treatment plan. You may return to the Emergency Department should you have concerns or if your condition changes or worsens in any way. Coding Level of Care Code ED Supervisor [employer] for Augustine Hamilton
--- NOTE | 2023-10-11 09:16 | DCPLANNER ---
Patients called on 10/11/23 at 0916 am and requested the cardiology referral be sent to in [facility] fax number is [phone]. I will get this chart printed off and faxed.
== END 2023-10-09 04:55 | disposition home or self-care (01) ==
PROVIDERS: Emergency Provider Internal Medicine; PCP Family Medicine
DX: R07.89 Other chest pain (principal); G25.81 Restless legs syndrome; Z79.82 Long term (current) use of aspirin; I10 Essential (primary) hypertension
CPT/HCPCS: 71045; 80053; 83880; 84484; 85025; 85610; 93005; 99285

== ENCOUNTER → 2024-08-01 12:36 | Outpatient (BNVA) | payer MEDICARE, OTHER, SELFPAY | PROVIDERS: PCP Family Medicine; Visit Provider Internal Medicine | DX: R07.9 Chest pain, unspecified (principal) | CPT/HCPCS: 93005; 99204 ==

== ENCOUNTER 2024-08-04 06:04 | Outpatient (CLI) | payer MEDICARE, OTHER, SELFPAY ==
--- NOTE | 2024-08-04 06:15 | USCV_ITS ---
Porfirio Guzman Age: 78 Gender: M : 1945 Exam Date: 08/04/2024 06:31 Ordering Phys: Kike Pacheco M.D ([email or web address]) Technologist: Henri Saucedo [place] [facility] [place]: chest pain BP: 144 / 110 HR: 66 Rhythm: Atrial fibrillation Technical Quality: Adequate MEASUREMENTS (Male / Female) Normal Values 2D ECHO LV Diastolic Diameter PLAX 4.5 cm 4.2 - 5.9 / 3.9 - 5.3 cm IVS Diastolic Thickness 1.3 cm 0.6 - 1.0 / 0.6 - 0.9 cm IVS Systolic Thickness 1.9 cm LVPW Diastolic Thickness 1.4 cm 0.6 - 1.0 / 0.6 - 0.9 cm LVPW Systolic Thickness 2.3 cm LVOT Diameter 2.2 cm LV Ejection Fraction 2D Teich 67.1 % LV Ejection Fraction MOD 4C 43.7 % LV Ejection Fraction MOD 2C 46.0 % LV Ejection Fraction 2C AL 46.1 % LA Diameter 4.4 cm RA Systolic Volume 4C AL 27.7 ml RA Systolic Volume 4C MOD 28.5 ml Aorta at Sinotubular Diameter 3.0 cm IVC Diameter 1.4 cm M-MODE LA Ao Ratio MM 1.4 AV Cusp Separation MM 2.0 cm DOPPLER AV Peak Velocity 212.0 cm/s LVOT Peak Velocity 93.0 cm/s AV Area Cont Eq vti 2.4 cm squared AV Area Cont Eq pk 1.6 cm squared MV Peak Velocity 87.0 cm/s MV Area PHT 3.6 cm squared Mitral E to A Ratio 3.3 TV Peak Velocity 263.0 cm/s TR Peak Velocity 290.0 cm/s TR Peak Gradient 33.6 mmHg TR Mean Velocity 208.0 cm/s TR Mean Gradient 19.9 mmHg TR Velocity Time Integral 91.6 cm PV Peak Velocity 106.0 cm/s RV Ejection Time 0.3 s FINDINGS Left Ventricle Left ventricle is normal in size. LV systolic function is mildly reduced with EF of 40-45%. Mild global hypokinesis. Right Ventricle Normal in size and function Right Atrium Normal in size Left Atrium Normal in size Mitral Valve Mild mitral normal calcification. Mild mitral regurgitation. Aortic Valve Aortic valve is thickened. No significant stenosis. Mild aortic regurgitation Tricuspid Valve Mild tricuspid regurgitation. RVSP is normal. Pulmonic Valve Mild pulmonic regurgitation. Pericardium Normal Aorta Ascending aorta is mildly dilated with diameter of 3.57 cm. IVC Appears to be normal CONCLUSIONS LV systolic function is mildly reduced with EF of 40 to 45%. Mild mitral regurgitation Mild tricuspid regurgitation Mild pulmonary regurgitation Ascending aorta is mildly dilated with diameter of 3.57 cm. Compared to prior echocardiogram from 2020, no significant changes are seen. Kike Pacheco MD (Electronically Signed) Final Date: 05 August 2024 12:36 S
== END 2024-08-04 06:05 | disposition home or self-care (01) ==
LOC: RAD 06:06
PROVIDERS: PCP Family Medicine; Visit Provider Internal Medicine
DX: R07.9 Chest pain, unspecified (principal); R06.02 Shortness of breath; R93.1 Abnormal findings on diagnostic imaging of heart and coronary circulation; I34.81 Nonrheumatic mitral (valve) annulus calcification; I34.0 Nonrheumatic mitral (valve) insufficiency; I35.8 Other nonrheumatic aortic valve disorders; I35.1 Nonrheumatic aortic (valve) insufficiency; I07.1 Rheumatic tricuspid insufficiency; I37.1 Nonrheumatic pulmonary valve insufficiency; I77.819 Aortic ectasia, unspecified site
CPT/HCPCS: 93306

== ENCOUNTER → 2024-09-26 10:41 | Outpatient (BNVA) | payer MEDICARE, OTHER, SELFPAY | PROVIDERS: PCP Family Medicine; Visit Provider Orthopaedic Surgery | DX: S32.040A Wedge compression fracture of fourth lumbar vertebra, initial encounter for closed fracture (principal); X58.XXXA Exposure to other specified factors, initial encounter; M54.9 Dorsalgia, unspecified | CPT/HCPCS: 72110; 99204 ==

== ENCOUNTER 2024-09-29 07:48 | Outpatient (CLI) | payer MEDICARE, OTHER, SELFPAY ==
--- NOTE | 2024-09-29 08:00 | MRR_ITS ---
PROCEDURE INFORMATION: Exam: MR Lumbar Spine Without Contrast Exam date and time: 09/29/2024 8:06 AM Age: 78 years old Clinical indication: Low back pain; Lbp, injured lifting bed frame. Poss. Compression FX seen on XR; Additional info: Possible compression FX TECHNIQUE: Imaging protocol: Magnetic resonance imaging of the lumbar spine without contrast. COMPARISON: CR XR lumbar spine min 4V [id number] 09/26/2024 10:46 AM FINDINGS: Bones/joints: There are multiple compression deformities including T12, L1, L2 and L4. There is edema within the L4 vertebral body indicating an acute fracture. Spondylosis is noted with disc bulging and facet arthropathy, ligamentous thickening. Spinal cord: Visualized cord, conus medullaris and cauda equina are unremarkable without compression. L1-L2: No significant disc bulge or herniation. No severe spinal canal stenosis. No significant neural foraminal narrowing. L2-L3: At L2-L3 there is mild disc bulging and facet arthropathy. There is mild canal narrowing and neural foraminal narrowing. L3-L4: At L3-L4 there is disc bulging with ligamentous thickening and facet arthropathy causing mild to moderate canal and neural foraminal narrowing. L4-L5: At L4-L5 there is disc bulging and facet arthropathy. There is mild canal narrowing and moderate neural foraminal stenosis. L5-S1: At L5-S1 there is disc bulging with facet arthropathy. There is no significant canal narrowing and mild left neural foraminal narrowing due to facet arthropathy. Soft tissues: Unremarkable. MR/MR lumbar spine wo con* [id number] IMPRESSION: Acute L4 vertebral compression fracture. Other chronic thoracolumbar compression deformities noted. Lumbar spondylosis.
== END 2024-09-29 07:49 | disposition home or self-care (01) ==
LOC: RAD 07:51
PROVIDERS: PCP Family Medicine; Visit Provider Orthopaedic Surgery
DX: S32.040A Wedge compression fracture of fourth lumbar vertebra, initial encounter for closed fracture (principal); X50.0XXA Overexertion from strenuous movement or load, initial encounter; M47.896 Other spondylosis, lumbar region; M51.369 Other intervertebral disc degeneration, lumbar region without mention of lumbar back pain or lower extremity pain; M48.061 Spinal stenosis, lumbar region without neurogenic claudication; M51.379 Other intervertebral disc degeneration, lumbosacral region without mention of lumbar back pain or lower extremity pain; M47.897 Other spondylosis, lumbosacral region; M48.07 Spinal stenosis, lumbosacral region; R93.7 Abnormal findings on diagnostic imaging of other parts of musculoskeletal system
CPT/HCPCS: 72148

== ENCOUNTER → 2024-10-03 10:09 | Outpatient (BNVA) | payer MEDICARE, OTHER, SELFPAY | PROVIDERS: PCP Family Medicine; Visit Provider Orthopaedic Surgery | DX: S32.040A Wedge compression fracture of fourth lumbar vertebra, initial encounter for closed fracture (principal); X58.XXXA Exposure to other specified factors, initial encounter | CPT/HCPCS: 99213 ==

== ENCOUNTER → 2024-10-31 08:38 | Outpatient (BNVA) | payer MEDICARE, OTHER, SELFPAY | PROVIDERS: PCP Family Medicine; Visit Provider Orthopaedic Surgery | DX: S32.040A Wedge compression fracture of fourth lumbar vertebra, initial encounter for closed fracture (principal); X58.XXXA Exposure to other specified factors, initial encounter | CPT/HCPCS: 72100; 99213 ==

== ENCOUNTER 2024-11-22 14:47 | Outpatient (CLI) | payer MEDICARE, OTHER, SELFPAY ==
--- NOTE | 2024-11-22 14:50 | XR_ITS ---
WS: [id number] SCREENING DEXA SCAN [employer] CLINICAL INFORMATION: OTHER SPECIFIED DISORDER OF BD STRUCTURES COMPARISON: None. FINDINGS: The L1-L4 bone mineral density measures 1.114 g/cm2. This corresponds to a T score score of -0.9 and Z score of -0.5. Left femoral neck bone mineral density measures 0.643 g/cm2. This corresponds to a T score of -3.2 and Z score of -2.3. Right femoral neck bone mineral density measures 0.671 g/cm2. This corresponds to a T score -3.0of and Z score of -2.1. Mean femoral neck bone mineral density measures 0.657 g/cm2. This corresponds to a T score of -3.1 and Z score of -2.2. XR/XR DEXA axial skeleton* [id number] IMPRESSION: Normal bone mineralization lumbar spine. Osteoporosis femoral necks. Patient's FRAX calculated 10 year probability for major osteoporotic fracture i s 27.4% and osteoporotic hip fracture is 15.8%.
== END 2024-11-22 14:48 | disposition home or self-care (01) ==
PROVIDERS: PCP Family Medicine; Visit Provider Family Medicine
DX: M85.88 Other specified disorders of bone density and structure, other site (principal); M81.0 Age-related osteoporosis without current pathological fracture
CPT/HCPCS: 77080

== ENCOUNTER → 2024-12-12 08:29 | Outpatient (BNVA) | payer MEDICARE, OTHER, SELFPAY | PROVIDERS: PCP Family Medicine; Visit Provider Orthopaedic Surgery | DX: M54.9 Dorsalgia, unspecified (principal) | CPT/HCPCS: 72100; 99213 ==

== ENCOUNTER → 2025-01-30 13:56 | Outpatient (BNVA) | payer MEDICARE, OTHER, SELFPAY | PROVIDERS: PCP Family Medicine; Visit Provider Internal Medicine | DX: I48.91 Unspecified atrial fibrillation (principal); I10 Essential (primary) hypertension; Z79.01 Long term (current) use of anticoagulants | CPT/HCPCS: 99213 ==